=== PATIENT | female | born 1975 | race Caucasian/White ===

== ENCOUNTER 2018-03-06 06:26 | Inpatient (IN) | payer MEDICAID ==
[2018-02-25 11:28] LABS: ADD MAN DIFF? NO
[2018-02-25 11:36] LABS: BASOPHIL # 0.1 10^3/ul (0.0-0.1); BASOPHILS % 0.6 % (0.0-2.0); EOSINOPHILS # 0.3 10^3/ul (0.0-0.5); EOSINOPHILS % 3.5 % (0.0-7.0); HEMATOCRIT 41.9 % (37.0-47.0); HEMOGLOBIN 13.8 g/dl (12.0-16.0); LYMPHOCYTES # 3.5 10^3/ul (0.8-2.9); LYMPHOCYTES % 42.8 % (15.0-51.0); MEAN CORPUSCULAR HGB CONC 32.9 g/dl (32.0-37.0); MEAN CORPUSCULAR VOLUME 79.1 fl (82.0-101.0); MEAN PLATELET VOLUME 9.4 fl (7.4-10.4); MONOCYTE # 0.5 10^3/ul (0.3-0.9); MONOCYTES % 5.6 % (0.0-11.0); NEUTROPHIL # 3.8 10^3/ul (1.6-7.5); NEUTROPHILS % 47.3 % (39.0-77.0); PLATELET COUNT 283 10^3/UL (140-415); RED CELL DISTRIBUTION WIDTH 14.3 % (11.5-14.5)
[2018-02-25 11:36] LABS: WHITE BLOOD COUNT 8.1 10^3/ul (4.8-10.8)
[2018-02-25 11:52] LABS: INR 0.93; PARTIAL THROMBOPLASTIN TIME 27.3 Sec (25.0-35.0); PROTIME 12.6 Sec (11.9-14.9)
[2018-02-25 11:53] LABS: ALANINE AMINOTRANSFERASE 18 IU/L (13-69); ALBUMIN 4.2 g/dl (3.3-4.9); ALKALINE PHOSPHATASE 88 IU/L (42-121); ANION GAP 11 (8-16); ASPARTATE AMINO TRANSFERASE 24 IU/L (15-46); BILIRUBIN,INDIRECT 0.6 mg/dl (0-1.1); BILIRUBIN,TOTAL 0.6 mg/dl (0.2-1.3); BLOOD UREA NITROGEN 9 mg/dl (7-20); CALCIUM 8.9 mg/dl (8.4-10.2); CARBON DIOXIDE 26 mmol/L (21-31); CHLORIDE 107 mmol/L (97-110); CREATININE 0.58 mg/dl (0.44-1.00); GLUCOSE 90 mg/dl (70-220); POTASSIUM 4.4 mmol/L (3.5-5.1); SODIUM 140 mmol/L (135-144); TOTAL PROTEIN 7.2 g/dl (6.1-8.1)
[2018-03-06] MEDS ORDERED: KETAMINE (100 MG/ML) 5 ML VIAL (07:00)
[2018-03-06] MEDS ORDERED: SOD CHLORIDE 0.9% 1,000 ML IV (07:00)
[2018-03-06] MEDS ORDERED: CEFAZOLIN 2 GM/50 ML (PMX) 50 ML IVPB (07:00)
[2018-03-06] MEDS ORDERED: CEFAZOLIN 1 GM INJ (11:58)
[2018-03-06] MEDS ORDERED: PROPOFOL 200 MG INJ (11:58)
[2018-03-06] MEDS ORDERED: PROPOFOL 40 ML (11:59)
[2018-03-06] MEDS ORDERED: MIDAZOLAM 1 MG/ML 2 ML INJ (11:59)
[2018-03-06] MEDS ORDERED: LIDOCAINE 2% (SDV) 5 ML INJ (11:59)
[2018-03-06] MEDS ORDERED: ACETAMINOPHEN 1000MG/100ML IV 100 ML (12:00)
[2018-03-06] MEDS ORDERED: ONDANSETRON 4 MG INJ (12:00)
[2018-03-06] MEDS ORDERED: DEXAMETHASONE 4 MG/ML 1 ML INJ ×2 (12:00→13:27)
[2018-03-06] MEDS ORDERED: FAMOTIDINE 20 MG INJ (12:00)
[2018-03-06] MEDS ORDERED: FENTAnyl 50 MCG/ML VIAL ×2 (12:00→13:54)
[2018-03-06] MEDS ORDERED: METOCLOPRAMIDE 10 MG INJ (12:00)
[2018-03-06] MEDS ORDERED: PHENYLephrine (100 MCG/ML) 5ML SYG ×2 (13:19→13:34)
[2018-03-06] MEDS ORDERED: EPHEDrine SULFATE 50 MG/5 ML SYG (13:23)
[2018-03-06] MEDS: ISOSULFAN BLUE 1% 5 ML INJ SC (13:35)
[2018-03-06] MEDS ORDERED: MAGNESIUM SULFATE 1 GM/D5W 100 ML (14:01)
[2018-03-06] MEDS ORDERED: morphine 2 MG INJ IV (14:30)
[2018-03-06] MEDS ORDERED: ACETAMINOPHEN 1000MG/100ML IV 100 ML IVPB (14:30)
[2018-03-06] MEDS ORDERED: DIPHENHYDRAMINE 50 MG INJ IV (15:00)
[2018-03-06] MEDS ORDERED: FENTAnyl 50 MCG/ML VIAL IV ×2 (15:00)
[2018-03-06] MEDS ORDERED: OXYCODONE/ACETAMINOPHEN (5/325) TAB PO ×2 (15:00)
[2018-03-06] MEDS ORDERED: morphine (1 MG/ML) 10ML SYRINGE IV ×2 (15:00)
[2018-03-06] MEDS ORDERED: MEPERIDINE 25 MG INJ IV (15:00)
[2018-03-06] MEDS ORDERED: LABETALOL HCL 20MG INJ IV (15:00)
[2018-03-06] MEDS ORDERED: ALBUTEROL 0.083% (NEB) 2.5 MG/3 ML AMP HHN (15:00)
[2018-03-06] MEDS ORDERED: HYDROmorphONE 1 MG/5 ML IV SYRINGE IV (15:00)
[2018-03-06] MEDS: ONDANSETRON 4 MG INJ IV ×2 (15:31→18:31)
[2018-03-06] MEDS: HYDROmorphONE 1 MG/5 ML IV SYRINGE IV (15:32)
[2018-03-06] MEDS: D5W-0.45 NACL + KCL 20 MEQ 1,000 ML IV (17:22)
[2018-03-06] MEDS: CALCIUM/VITAMIN D (500/200) TAB PO (21:12)
[2018-03-07] MEDS: D5W-0.45 NACL + KCL 20 MEQ 1,000 ML IV ×4 (01:50→20:27)
[2018-03-07] MEDS: ACETAMINOPHEN 325 MG TAB PO ×2 (02:15→14:13)
[2018-03-07 06:11] LABS: ADD MAN DIFF? NO
[2018-03-07] MEDS: LEVOTHYROXINE 50 MCG TAB PO (06:16)
[2018-03-07 06:23] LABS: WHITE BLOOD COUNT 20.3 10^3/ul (4.8-10.8)
[2018-03-07 06:23] LABS: BASOPHILS % 0.1 % (0.0-2.0); HEMATOCRIT 38.4 % (37.0-47.0); HEMOGLOBIN 13.1 g/dl (12.0-16.0); LYMPHOCYTES # 1.6 10^3/ul (0.8-2.9); LYMPHOCYTES % 7.7 % (15.0-51.0); MEAN CORPUSCULAR HEMOGLOBIN 26.3 pg (29.0-33.0); MEAN CORPUSCULAR HGB CONC 34.1 g/dl (32.0-37.0); MEAN PLATELET VOLUME 9.7 fl (7.4-10.4); MONOCYTE # 0.7 10^3/ul (0.3-0.9); MONOCYTES % 3.4 % (0.0-11.0); NEUTROPHIL # 17.9 10^3/ul (1.6-7.5); NEUTROPHILS % 88.3 % (39.0-77.0); PLATELET COUNT 290 10^3/UL (140-415); RED BLOOD COUNT 4.99 10^6/ul (4.20-5.40); RED CELL DISTRIBUTION WIDTH 14.4 % (11.5-14.5)
[2018-03-07 06:53] LABS: ANION GAP 13 (8-16); BLOOD UREA NITROGEN 7 mg/dl (7-20); CALCIUM 8.9 mg/dl (8.4-10.2); CARBON DIOXIDE 21 mmol/L (21-31); CHLORIDE 111 mmol/L (97-110); CREATININE 0.52 mg/dl (0.44-1.00); GLUCOSE 152 mg/dl (70-220); POTASSIUM 4.7 mmol/L (3.5-5.1); SODIUM 140 mmol/L (135-144)
[2018-03-07] MEDS: CALCIUM/VITAMIN D (500/200) TAB PO ×2 (09:42→20:27)
[2018-03-07 15:20] LABS: ADD MAN DIFF? NO
[2018-03-07 15:23] LABS: WHITE BLOOD COUNT 20.2 10^3/ul (4.8-10.8)
[2018-03-07 15:23] LABS: BASOPHILS % 0.2 % (0.0-2.0); EOSINOPHILS % 0.2 % (0.0-7.0); HEMOGLOBIN 12.3 g/dl (12.0-16.0); LYMPHOCYTES # 2.5 10^3/ul (0.8-2.9); LYMPHOCYTES % 12.4 % (15.0-51.0); MEAN CORPUSCULAR HEMOGLOBIN 26.3 pg (29.0-33.0); MEAN CORPUSCULAR HGB CONC 34.2 g/dl (32.0-37.0); MEAN CORPUSCULAR VOLUME 77.1 fl (82.0-101.0); MEAN PLATELET VOLUME 9.5 fl (7.4-10.4); MONOCYTE # 1.1 10^3/ul (0.3-0.9); MONOCYTES % 5.4 % (0.0-11.0); NEUTROPHIL # 16.4 10^3/ul (1.6-7.5); NEUTROPHILS % 81.3 % (39.0-77.0); PLATELET COUNT 260 10^3/UL (140-415); RED BLOOD COUNT 4.67 10^6/ul (4.20-5.40); RED CELL DISTRIBUTION WIDTH 14.8 % (11.5-14.5)
[2018-03-08 00:02] LABS: ADD UMIC YES; UR ASCORBIC ACID NEGATIVE (NEGATIVE); UR BACTERIA MODERATE /HPF (NONE SEEN); UR BILIRUBIN (Dip) NEGATIVE (NEGATIVE); UR BLOOD (Dip) 1+ mg/dL (NEGATIVE); UR CLARITY CLEAR (CLEAR); UR COLOR STRAW (YELLOW); UR GLUCOSE (Dip) NEGATIVE (NEGATIVE); UR KETONES (Dip) NEGATIVE (NEGATIVE); UR LEUKOCYTE ESTERASE (Dip) NEGATIVE Leu/ul (NEGATIVE); UR NITRITE (Dip) NEGATIVE (NEGATIVE); UR RBC 1 /HPF (0-5); UR SPECIFIC GRAVITY (Dip) 1.008 (1.003-1.030); UR SQUAMOUS EPITHELIAL CELL FEW /HPF (FEW); UR TOTAL PROTEIN (Dip) NEGATIVE (NEGATIVE); UR UROBILINOGEN (Dip) NEGATIVE (NEGATIVE); UR WBC 1 /HPF (0-5)
[2018-03-08] MEDS: ACETAMINOPHEN 325 MG TAB PO ×2 (02:17→13:24)
[2018-03-08] MEDS: LEVOTHYROXINE 50 MCG TAB PO (06:28)
[2018-03-08] MEDS: D5W-0.45 NACL + KCL 20 MEQ 1,000 ML IV ×2 (06:29→16:09)
[2018-03-08 06:45] LABS: ADD MAN DIFF? NO
[2018-03-08 06:57] LABS: BASOPHILS % 0.4 % (0.0-2.0); EOSINOPHILS # 0.2 10^3/ul (0.0-0.5); EOSINOPHILS % 1.9 % (0.0-7.0); HEMATOCRIT 36.1 % (37.0-47.0); LYMPHOCYTES # 2.3 10^3/ul (0.8-2.9); LYMPHOCYTES % 24.1 % (15.0-51.0); MEAN CORPUSCULAR HEMOGLOBIN 25.8 pg (29.0-33.0); MEAN CORPUSCULAR HGB CONC 33.2 g/dl (32.0-37.0); MEAN CORPUSCULAR VOLUME 77.6 fl (82.0-101.0); MEAN PLATELET VOLUME 9.9 fl (7.4-10.4); MONOCYTE # 0.6 10^3/ul (0.3-0.9); NEUTROPHIL # 6.3 10^3/ul (1.6-7.5); NEUTROPHILS % 67.3 % (39.0-77.0); PLATELET COUNT 203 10^3/UL (140-415); RED BLOOD COUNT 4.65 10^6/ul (4.20-5.40); RED CELL DISTRIBUTION WIDTH 14.9 % (11.5-14.5)
[2018-03-08 06:57] LABS: WHITE BLOOD COUNT 9.4 10^3/ul (4.8-10.8)
[2018-03-08 07:24] LABS: ANION GAP 12 (8-16); BLOOD UREA NITROGEN 9 mg/dl (7-20); CALCIUM 8.5 mg/dl (8.4-10.2); CARBON DIOXIDE 23 mmol/L (21-31); CHLORIDE 108 mmol/L (97-110); CREATININE 0.56 mg/dl (0.44-1.00); GLUCOSE 118 mg/dl (70-220); POTASSIUM 4.3 mmol/L (3.5-5.1); SODIUM 139 mmol/L (135-144)
[2018-03-08] MEDS: CALCIUM/VITAMIN D (500/200) TAB PO ×2 (09:42→20:39)
[2018-03-08] MEDS: CEFTRIAXONE 1 GM/50 ML (PMX) 50 ML IVPB (15:57)
[2018-03-08 16:25] LABS: ADD UMIC YES; UR ASCORBIC ACID NEGATIVE (NEGATIVE); UR BACTERIA FEW /HPF (NONE SEEN); UR BILIRUBIN (Dip) NEGATIVE (NEGATIVE); UR BLOOD (Dip) 2+ mg/dL (NEGATIVE); UR CLARITY CLEAR (CLEAR); UR COLOR COLORLESS (YELLOW); UR GLUCOSE (Dip) NEGATIVE (NEGATIVE); UR KETONES (Dip) NEGATIVE (NEGATIVE); UR LEUKOCYTE ESTERASE (Dip) NEGATIVE Leu/ul (NEGATIVE); UR NITRITE (Dip) NEGATIVE (NEGATIVE); UR RBC 0 /HPF (0-5); UR SPECIFIC GRAVITY (Dip) 1.001 (1.003-1.030); UR TOTAL PROTEIN (Dip) NEGATIVE (NEGATIVE); UR UROBILINOGEN (Dip) NEGATIVE (NEGATIVE); UR WBC 0 /HPF (0-5)
[2018-03-08 16:42] LABS: LACTIC ACID 1.8 mmol/L (0.5-2.0)
[2018-03-09] MEDS: D5W-0.45 NACL + KCL 20 MEQ 1,000 ML IV ×2 (05:48→20:34)
[2018-03-09] MEDS: LEVOTHYROXINE 50 MCG TAB PO (06:08)
[2018-03-09 06:38] LABS: ADD MAN DIFF? NO
[2018-03-09 06:40] LABS: BASOPHILS % 0.5 % (0.0-2.0); EOSINOPHILS # 0.2 10^3/ul (0.0-0.5); EOSINOPHILS % 2.5 % (0.0-7.0); HEMATOCRIT 42.2 % (37.0-47.0); HEMOGLOBIN 14.3 g/dl (12.0-16.0); LYMPHOCYTES # 2.5 10^3/ul (0.8-2.9); LYMPHOCYTES % 31.7 % (15.0-51.0); MEAN CORPUSCULAR HEMOGLOBIN 25.9 pg (29.0-33.0); MEAN CORPUSCULAR HGB CONC 33.9 g/dl (32.0-37.0); MEAN CORPUSCULAR VOLUME 76.3 fl (82.0-101.0); MEAN PLATELET VOLUME 9.3 fl (7.4-10.4); MONOCYTE # 0.8 10^3/ul (0.3-0.9); MONOCYTES % 10.2 % (0.0-11.0); NEUTROPHIL # 4.4 10^3/ul (1.6-7.5); NEUTROPHILS % 54.4 % (39.0-77.0); PLATELET COUNT 188 10^3/UL (140-415); RED BLOOD COUNT 5.53 10^6/ul (4.20-5.40); RED CELL DISTRIBUTION WIDTH 14.6 % (11.5-14.5)
[2018-03-09 07:11] LABS: ANION GAP 13 (8-16); BLOOD UREA NITROGEN 9 mg/dl (7-20); CALCIUM 9.5 mg/dl (8.4-10.2); CARBON DIOXIDE 28 mmol/L (21-31); CHLORIDE 100 mmol/L (97-110); CREATININE 0.69 mg/dl (0.44-1.00); GLUCOSE 120 mg/dl (70-220); POTASSIUM 4.3 mmol/L (3.5-5.1); SODIUM 137 mmol/L (135-144)
[2018-03-09] MEDS: CALCIUM/VITAMIN D (500/200) TAB PO ×2 (08:36→20:34)
[2018-03-09] MEDS: CEFTRIAXONE 1 GM/50 ML (PMX) 50 ML IVPB (14:30)
[2018-03-09] MEDS: ACETAMINOPHEN 325 MG TAB PO (20:34)
[2018-03-10] MEDS: LEVOTHYROXINE 50 MCG TAB PO (06:14)
[2018-03-10 06:53] LABS: ADD MAN DIFF? NO
[2018-03-10 06:59] LABS: BASOPHILS % 0.5 % (0.0-2.0); EOSINOPHILS # 0.5 10^3/ul (0.0-0.5); EOSINOPHILS % 5.4 % (0.0-7.0); HEMATOCRIT 43.5 % (37.0-47.0); HEMOGLOBIN 14.5 g/dl (12.0-16.0); LYMPHOCYTES # 3.3 10^3/ul (0.8-2.9); LYMPHOCYTES % 37.3 % (15.0-51.0); MEAN CORPUSCULAR HEMOGLOBIN 25.7 pg (29.0-33.0); MEAN CORPUSCULAR HGB CONC 33.3 g/dl (32.0-37.0); MEAN CORPUSCULAR VOLUME 77.1 fl (82.0-101.0); MEAN PLATELET VOLUME 9.7 fl (7.4-10.4); MONOCYTE # 0.9 10^3/ul (0.3-0.9); MONOCYTES % 10.1 % (0.0-11.0); NEUTROPHILS % 46.1 % (39.0-77.0); PLATELET COUNT 190 10^3/UL (140-415); RED BLOOD COUNT 5.64 10^6/ul (4.20-5.40); RED CELL DISTRIBUTION WIDTH 14.6 % (11.5-14.5)
[2018-03-10 06:59] LABS: WHITE BLOOD COUNT 8.7 10^3/ul (4.8-10.8)
[2018-03-10 07:22] LABS: ANION GAP 15 (8-16); BLOOD UREA NITROGEN 10 mg/dl (7-20); CALCIUM 9.2 mg/dl (8.4-10.2); CARBON DIOXIDE 23 mmol/L (21-31); CHLORIDE 106 mmol/L (97-110); CREATININE 0.48 mg/dl (0.44-1.00); GLUCOSE 118 mg/dl (70-220); POTASSIUM 4.1 mmol/L (3.5-5.1); SODIUM 140 mmol/L (135-144)
[2018-03-10] MEDS: CALCIUM/VITAMIN D (500/200) TAB PO (08:51)
[2018-03-10] MEDS: D5W-0.45 NACL + KCL 20 MEQ 1,000 ML IV (11:47)
[2018-03-12 13:36] LABS: PROCALCITONIN 0.51 ng/mL (<0.10)
== END 2018-03-10 15:55 | disposition home or self-care (01) | DRG 581 ==
LOC: SDS 06:26 → REC 17:10 → SDS 06:26 → 2NE 03-08 23:45 → REC 14:27 → 2NE 17:10
PROC: 0HBT0ZZ Excision of Right Breast, Open Approach (ICD-10-PCS; principal; 2018-03-06 12:30)
PROC: 07B50ZX Excision of Right Axillary Lymphatic, Open Approach, Diagnostic (ICD-10-PCS; 2018-03-06 12:30)
DX: C50.911 Malignant neoplasm of unspecified site of right female breast (principal); E03.9 Hypothyroidism, unspecified; R50.82 Postprocedural fever; D72.829 Elevated white blood cell count, unspecified; R30.0 Dysuria
CPT/HCPCS: 71045; 80048; 80053; 81001; 83605; 84145; 85025; 85610; 85730; 87040; 87086; 88307; 88331; 93005

== ENCOUNTER 2018-06-12 08:39 | Day surgery (SDC) | payer MEDICAID ==
[~2018-06-12 08:39] MED LIST: CEFAZOLIN 1 GM/50 ML (PMX) 50 ML IVPB; SOD CHLORIDE 0.9% 1,000 ML IV
[2018-06-12] MEDS ORDERED: FENTAnyl 50 MCG/ML VIAL (11:07)
[2018-06-12] MEDS ORDERED: PROPOFOL 20 ML (11:07)
[2018-06-12] MEDS ORDERED: ROCURONIUM 50 MG INJ (11:07)
[2018-06-12] MEDS ORDERED: NEOSTIGMINE 3 MG/3 ML SYRINGE (11:07)
[2018-06-12] MEDS ORDERED: GLYCOPYRROLATE 0.4 MG INJ (11:07)
[2018-06-12] MEDS ORDERED: LIDOCAINE 2% (SDV) 5 ML INJ (11:07)
[2018-06-12] MEDS ORDERED: MIDAZOLAM 1 MG/ML 2 ML INJ (11:08)
[2018-06-12] MEDS ORDERED: DEXAMETHASONE 4 MG/ML 1 ML INJ (11:47)
[2018-06-12] MEDS ORDERED: ONDANSETRON 4 MG INJ (11:48)
[2018-06-12] MEDS ORDERED: CEFAZOLIN 1 GM INJ (12:55)
[2018-06-12] MEDS ORDERED: SUCCINYLCHOLINE CHLORIDE 100 MG/5 ML SYG IV (12:55)
[2018-06-12] MEDS ORDERED: LIDOCAINE 4% CR (13:05)
[2018-06-12] MEDS ORDERED: HYDROmorphONE 1 MG/5 ML IV SYRINGE IV ×3 (13:29→14:00)
[2018-06-12] MEDS ORDERED: HYDROCODONE/APAP (7.5/325) TAB PO (13:30)
[2018-06-12] MEDS ORDERED: ALBUTEROL 0.083% (NEB) 2.5 MG/3 ML AMP HHN (14:00)
[2018-06-12] MEDS ORDERED: MEPERIDINE 25 MG INJ IV (14:00)
[2018-06-12] MEDS ORDERED: DIPHENHYDRAMINE 50 MG INJ IV (14:00)
[2018-06-12] MEDS ORDERED: FENTAnyl 50 MCG/ML VIAL IV ×2 (14:00)
[2018-06-12] MEDS ORDERED: KETOROLAC 30 MG INJ IV (14:00)
[2018-06-12] MEDS ORDERED: METOCLOPRAMIDE 10 MG INJ IV (14:00)
[2018-06-12] MEDS ORDERED: OXYCODONE/ACETAMINOPHEN (5/325) TAB PO ×2 (14:00)
[2018-06-12] MEDS: HYDROmorphONE 1 MG/5 ML IV SYRINGE IV (14:36)
[2018-06-12] MEDS ORDERED: FLUMAZENIL 0.5 MG INJ (15:03)
[2018-06-12] MEDS: ONDANSETRON 4 MG INJ IV (15:15)
== END 2018-06-12 15:44 | disposition home or self-care (01) ==
LOC: SDS 08:39
DX: C50.911 Malignant neoplasm of unspecified site of right female breast (principal); E03.9 Hypothyroidism, unspecified; J44.9 Chronic obstructive pulmonary disease, unspecified
CPT/HCPCS: 19301; 88307